=== PATIENT | female | born 1995 | race Hispanic/Latino ===

== ENCOUNTER 2016-11-07 20:22 | Observation (INO) | payer SELFPAY ==
[2016-11-07] MEDS ORDERED: Dexamethasone 10 MG in Sodium Chloride 0.9% 50 ML IV STA (20:59)
--- NOTE | 2016-11-07 22:01 | ED PDOC ---
"HPI: CCC, URI, Sore Throat Time Seen by Provider: 11/07/16 20:38 Chief Complaint (Nursing): ENT Problem Chief Complaint (Provider): Throat Pain History Per: Patient History/Exam Limitations: no limitations Onset/Duration Of Symptoms: Days (x 4) Current Symptoms Are (Timing): Still Present Associated Symptoms: Sore Throat Additional Complaint(s): Domenica Quispe is a 20 y/o female who presents to the emergency department complaining of a sore throat, ongoing for the past 4 days. Patient was admitted to [facility] yesterday, diagnosed with a peritonsillar abscess, and signed out today at 1pm against medical advice. She cites that nursing staff informed her they were unable to reach the consulting ENT that was to see her on consult. Since leaving [facility] she reports progressively feeling worse, increased difficulty swallowing, and sensation of increased swelling near the left tonsil. Patient denies fever, chest pain, and cough. Of note, patient is known to ENT provider Dr. Todd Buckley. Past Medical History Reviewed: Historical Data, Nursing Documentation, Vital Signs Vital Signs: Last Vital Signs Temp 97.9 F 11/08/16 02:36 Pulse 83 11/08/16 02:36 Resp 16 11/08/16 02:36 BP 125/65 11/08/16 02:36 Pulse Ox 100 11/08/16 03:58 - Surgical History Other surgeries: Facial reconstruction, right eye - Family History Family History: States: Unknown Family Hx - Home Medications Home Medications: Ambulatory Orders Medication Instructions Recorded No Known Home Med 11/08/16 - Allergies Allergies/Adverse Reactions: Allergies Allergy/AdvReac Type Severity Reaction Status Date / Time No Known Allergies Allergy Verified 11/07/16 20:36 Review of Systems ROS Statement: Except As Marked, All Systems Reviewed And Found Negative Constitutional: Negative for: Fever ENT: Positive for: Throat Pain, Throat Swelling (Left tonsil > right), Other ( Difficulty swallowing) Cardiovascular: Negative for: Chest Pain Respiratory: Negative for: Cough Physical Exam - Reviewed Nursing Documentation Reviewed: Yes Vital Signs Reviewed: Yes - Physical Exam Appears: Positive for: Non-toxic, No Acute Distress Head Exam: Positive for: ATRAUMATIC, NORMAL INSPECTION, NORMOCEPHALIC Skin: Positive for: Normal Color, Warm, Dry Eye Exam: Positive for: EOMI, Normal appearance, PERRL ENT: Positive for: Tonsillar Swelling (Bilateral tonsillar swelling, worse on the left. Tonsils 3+ on the left, 2+ on the right). Negative for: Tonsillar Exudate Neck: Positive for: Normal, Supple Cardiovascular/Chest: Positive for: Regular Rate, Rhythm. Negative for: Murmur Respiratory: Positive for: Normal Breath Sounds. Negative for: Accessory Muscle Use, Respiratory Distress Gastrointestinal/Abdominal: Positive for: Normal Exam, Bowel Sounds, Soft. Negative for: Tenderness Back: Positive for: Normal Inspection. Negative for: L CVA Tenderness, R CVA Tenderness Extremity: Positive for: Normal ROM. Negative for: Pedal Edema, Deformity Neurologic/Psych: Positive for: Alert, Oriented - Laboratory Results Result Diagrams: 11/07/16 22:05 11/07/16 22:05 - ECG O2 Sat by Pulse Oximetry: 100 (RA) Pulse Ox Interpretation: Normal Medical Decision Making Medical Decision Making: Time: 20:58 Impression: 20 y/o female with peritonsular abscess Initial Plan: --Labs --CT Neck --Toradol 10 mg IV --Dexamethasone 10 mg IV --Pending reevaluation --Consulted with Dr. Todd Buckley (ENT known to patient from [facility]) at 21:00, who recommends repeat CT at this time 0100: FINDINGS: The sinuses and mastoid air cells are clear. There is tonsillar edema greater on the left. Along the lateral aspect of the left tonsil on axial image image 28 and coronal image 30, there is a small faint 1.2 x 0.7 x 0.7 cm area of slightly decreased attenuation with a very thin enhancing rim partially surrounding the structure. The appearance suggests very early stages of abscess formation. The airway is patent. A normal epiglottis is identified. 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 The osseous structures are normal. The vasculature is normal. IMPRESSION: Tonsillar edema with very early stages of small left peritonsillar abscess as discussed in detail above. Case was discussed with Dr. Buckley. Patient will be admitted for possible surgical treatment in the morning for peritonsillar abscess. Requested patient to be admitted under hospitalist service. Dr Ortiz has admitted the patient. Scribe Attestation: Documented by Ruth Josue, acting as a scribe for Gume Ayala MD Provider Scribe Attestation: All medical record entries made by the Scribe were at my direction and personally dictated by me. I have reviewed the chart and agree that the record accurately reflects my personal performance of the history, physical exam, medical decision making, and the department course for this patient. I have also personally directed, reviewed, and agree with the discharge instructions and disposition. Disposition - Clinical Impression Clinical Impression: Peritonsillar abscess - Patient ED Disposition Is Patient to be Admitted: Yes Discussed With DrClarisa: Todd Buclkey (Dr Ortiz) - Disposition Disposition Time: 21:00 Condition: FAIR - Pt Status Changed To: Hospital Disposition Of: Inpatient - Admit Certification Admit to Inpatient:: After my assessment, the patient will require hospitalization for at least two midnights. This is because of the severity of symptoms shown, intensity of services needed, and/or the medical risk in this patient being treated as an outpatient."
[2016-11-07 22:12] LABS: BASO # 0.1 K/uL (0.0-0.2); BASO % 0.5 % (0.0-2.0); EOS # 0.1 K/uL (0.0-0.7); EOS % 1.1 % (0.0-4.0); HEMOGLOBIN 11.9 g/dL (12.0-16.0); LYMPH # 3.6 K/uL (1.0-4.3); LYMPH % 35.4 % (20.0-40.0); MEAN CORPUSCULAR HEMOGLOBIN 29.6 pg (27.0-31.0); MEAN CORPUSCULAR HGB CONC 32.9 g/dL (33.0-37.0); MEAN PLATELET VOLUME 9.7 fl (7.2-11.7); MONO # 0.7 K/uL (0.0-0.8); MONO % 6.6 % (0.0-10.0); NEUT # 5.8 K/uL (1.8-7.0); NEUT % 56.4 % (50.0-75.0); RBC 4.02 Mil/uL (3.80-5.20); WHITE BLOOD COUNT 10.2 K/uL (4.8-10.8)
[2016-11-07 22:21] LABS: ALB/GLOB RATIO 1.3 (1.0-2.1); ALBUMIN 4.2 g/dL (3.5-5.0); ALT/SGPT 29 U/L (9-52); AST/SGOT 22 U/L (14-36); BLOOD UREA NITROGEN 13 mg/dl (7-17); CALCIUM 9.6 mg/dL (8.4-10.2); GFR AFRICAN-AMERICAN > 60; GFR NON-AFRICAN AMERICAN > 60
[2016-11-07] MEDS ORDERED: Iohexol 300 100 ML IJ ONE (23:38)
[2016-11-07] MEDS ORDERED: Sodium Chloride 0.9% 50 ML IV ONE (23:39)
[2016-11-08] MEDS ORDERED: Ampicillin/Sulbactam 3 GM in Sodium Chloride 0.9% 100 ML IVPB STA (01:59)
--- NOTE | 2016-11-08 02:10 | CP.PCM.HP ---
History of Present Illness - History of Present Illness History of Present Illness: CC: Peritonsillar abscess HPI: 20 y/o female with no MHx who was recently admitted to [facility] with sore throat x 4 days and found to have PT abscess. She signed out AMA because apparently ENT was not able to come to the hospital for a long amount of time. Since then, patient with worsening difficulty swallowing, increased malaise. Denies f/c. Denies difficulty breathing. States nothing makes pain better or worse until she got medication here. ROS: 14 systems reviewed, negative other than HPI MHx: None SHx: R eye/facial reconstruction Allergies: NKDA Medications: As per med list Fam Hx: No relevent findings on review Social Hx: Lives with BF, smokes 5 cigs a day, no significant EtOH Present on Admission - Present on Admission Any Indicators Present on Admission: No Meds Allergies/Adverse Reactions: Allergies Allergy/AdvReac Type Severity Reaction Status Date / Time No Known Allergies Allergy Verified 11/07/16 20:36 Physical Exam - Constitutional Appears: No Acute Distress - Head Exam Head Exam: ATRAUMATIC, NORMOCEPHALIC - Eye Exam Eye Exam: EOMI, PERRL - ENT Exam ENT Exam: Mucous Membranes Moist Additional comments: tonsils/abscess not well visualized on physical exam - Cardiovascular Exam Cardiovascular Exam: REGULAR RHYTHM, +S1, +S2 - GI/Abdominal Exam GI & Abdominal Exam: Normal Bowel Sounds, Soft - Extremities Exam Extremities exam: Positive for: full ROM, normal inspection - Neurological Exam Neurological exam: Alert, CN II-XII Intact, Oriented x3 - Psychiatric Exam Psychiatric exam: Normal Affect, Normal Mood - Skin Skin Exam: Dry, Warm Results - Vital Signs Recent Vital Signs: Last Vital Signs Temp 99.1 F 11/07/16 20:30 Pulse 75 11/07/16 20:30 Resp 17 11/07/16 20:30 BP 134/72 11/07/16 20:30 Pulse Ox 100 11/07/16 22:39 - Labs Result Diagrams: 11/07/16 22:05 11/07/16 22:05 Labs: Laboratory Results - last 24 hr 11/07/16 11/07/16 11/07/16 22:05 22:05 22:05 WBC 10.2 RBC 4.02 Hgb 11.9 L Hct 36.1 MCV 90.0 MCH 29.6 MCHC 32.9 L RDW 16.0 H Plt Count 214 MPV 9.7 Neut % (Auto) 56.4 Lymph % (Auto) 35.4 Rusk % (Auto) 6.6 Eos % (Auto) 1.1 Baso % (Auto) 0.5 Neut # 5.8 Lymph # 3.6 Rusk # 0.7 Eos # 0.1 Baso # 0.1 Sodium 142 Potassium 3.3 L Chloride 106 Carbon Dioxide 27 Anion Gap 12 BUN 13 Creatinine 0.6 L Est GFR ( Amer) > 60 Est GFR (Non-Af Amer) > 60 Random Glucose 99 Lactic Acid Calcium 9.6 Total Bilirubin 0.4 AST 22 ALT 29 Alkaline Phosphatase 79 Total Protein 7.6 Albumin 4.2 Globulin 3.4 Albumin/Globulin Ratio 1.3 Infectious Rusk Assay Negative Grp A Beta Strep Ag 11/07/16 11/07/16 22:05 22:05 WBC RBC Hgb Hct MCV MCH MCHC RDW Plt Count MPV Neut % (Auto) Lymph % (Auto) Rusk % (Auto) Eos % (Auto) Baso % (Auto) Neut # Lymph # Rusk # Eos # Baso # Sodium Potassium Chloride Carbon Dioxide Anion Gap BUN Creatinine Est GFR ( Amer) Est GFR (Non-Af Amer) Random Glucose Lactic Acid 0.8 Calcium Total Bilirubin AST ALT Alkaline Phosphatase Total Protein Albumin Globulin Albumin/Globulin Ratio Infectious Rusk Assay Grp A Beta Strep Ag Negative - Imaging and Cardiology CT scan - head Status: Pending Assessment & Plan (1) Peritonsillar abscess Assessment and Plan: 20 y/o female with peritonsillar abscess, pending surgery. -NPO, IVF with K given low K -Pain medications per scale -Continue Unasyn 3 mg IV q6h -ENT consult (Marcio) -SCDs for DVT PPx Status: Acute (2) DVT prophylaxis Status: Acute
[2016-11-08] MEDS ORDERED: KCL 40MEQ/NS 1L 1,000 ML IV SCH (02:15)
[2016-11-08] MEDS: Ampicillin/Sulbactam 3 GM in Sodium Chloride 0.9% 100 ML IVPB SCH ×2 (04:32→09:30)
[2016-11-08 07:52] LABS: HEMOGLOBIN 12.6 g/dL (12.0-16.0); MEAN CELL VOLUME 90.5 fl (81.0-99.0); MEAN CORPUSCULAR HEMOGLOBIN 29.7 pg (27.0-31.0); MEAN CORPUSCULAR HGB CONC 32.9 g/dL (33.0-37.0); RBC 4.23 Mil/uL (3.80-5.20); WHITE BLOOD COUNT 7.4 K/uL (4.8-10.8)
[2016-11-08 07:56] LABS: BLOOD UREA NITROGEN 12 mg/dl (7-17); CALCIUM 9.4 mg/dL (8.4-10.2); GFR AFRICAN-AMERICAN > 60; GFR NON-AFRICAN AMERICAN > 60
[2016-11-08] MEDS ORDERED: Lidocaine 2% w Epi 1:100,000 Inj IJ ONE (09:48)
[2016-11-08] MEDS ORDERED: Morphine 4 MG/ML VIAL IVP PRN (10:00)
[2016-11-08 11:31] LABS: INR 1.1 (0.9-1.2); PARTIAL THROMBOPLASTIN TIME 29.2 Seconds (25.6-37.1)
[2016-11-08 12:10] VITALS: BP 95/53; PULSE 60; RESP 18; TEMP 97.5; O2SAT 99
--- NOTE | 2016-11-08 12:44 | CT ---
PROCEDURE: CT scan neck dated 11/07/2016 HISTORY: Possible SUPERVISOR INSPECTION COMPARISON: No prior TECHNIQUE: CT of the neck performed following intravenous injection of approximately 80 cc of Omnipaque 300 contrast material. Additional 2 dimensional sagittal and coronal reformats provided. Radiation dose: DLP 369.11 mGy-cm This CT exam was performed using one or more of the following dose reduction techniques: Automated exposure control, adjustment of the mA and/or kV according to patient size, and/or use of iterative reconstruction technique. FINDINGS: The current study reveals enlargement of the palatine tonsils left greater than right consistent with tonsillitis. . Additionally, there is a small approximately 9.3 x 4.8 by 6.5 mm low-attenuation focus in the left peritonsillar region that could represent a small fluid collection -early abscess. . The tonsils encroach posteromedially reducing the oropharyngeal airway. There is some irregularity of the vallecula which is likely due to some encroaching lingual tonsil as well as some residual and or retained secretion. Free margin of the epiglottis unremarkable. The aryepiglottic folds and pyriform sinuses appear relatively symmetric with no evidence of soft tissue masses seen. True vocal cords are symmetric as well. . The visualized parotid and submandibular glands grossly unremarkable without masses collections or calcifications. There are multiple bilateral cervical lymph nodes seen within the jugulodigastric, posterior cervical spaces as well as submandibular and submental regions. The largest left submandibular lymph node measures approximately 13 point 9 mm in greatest dimension. Largest left jugulodigastric lymph node measures approximately 12.5 mm. . Evaluation of the thyroid is somewhat limited due to crossing streak and beam hardening artifact arising from dense clavicles and shoulder girdles as well as enhancing vasculature. No evidence of significant thyroidal enlargement. No obvious thyroid masses nodules or collections seen. The cervical vasculature is unremarkable. Lung apices are clear. Visualized paranasal and mastoid air complexes are well-developed and currently well-aerated. Impression: Enlarged palatine tonsils left greater than right consistent with tonsillitis. There is a small hypodense focus with in the left peritonsillar region that probably represents a small peritonsillar abscess measuring approximately 9.3 mm in greatest dimension. The multiple small to medium sized bilateral cervical lymph nodes. See above discussion for additional details and findings. Preliminary report provided by [facility] radiology service
--- NOTE | 2016-11-10 05:31 | PROCN ---
PROCEDURE DATE: 11/08/2016 PREOPERATIVE DIAGNOSIS: Left peritonsillar abscess. POSTOPERATIVE DIAGNOSIS: Left peritonsillar abscess. PROCEDURE INFORMATION: Incision and drainage of the peritonsillar abscess. FINDINGS: Left peritonsillar abscess. PROCEDURE: The patient was placed in seated position. The left peritonsillar area was injected with lidocaine with epinephrine, a cut was made using #11 blade in the left peritonsillar area, clamp dissections were done , pus was noted coming out, loculations were broken using tonsillar clamp. Bleeding was controlled with time. Todd Buckley MD MTDD
== END 2016-11-08 14:07 | disposition home or self-care (01) ==
LOC: H.ER 20:22 → EDSEX 20:22 → H.ERHOLD 11-08 02:12 → INTOOBSV 11-08 02:12 → H.MEDSURG1 11-08 03:28
PROVIDERS: ADMIT Internal Medicine; ATTEND Internal Medicine
DX: J36 Peritonsillar abscess (principal); J45.909 Unspecified asthma, uncomplicated
CPT/HCPCS: 36415; 42700; 70491; 80048; 80053; 81025; 83605; 85025; 85027; 85610; 85730; 86308; 87040; 87070; 87430; 96365; 99283; G0378; J0295; J1100; J1885; Q9967